=== PATIENT | female | born 1955 | race Two or more races ===

== ENCOUNTER 2017-06-30 16:27 | Observation (INO) | payer OTHER ==
[2017-06-30] MEDS ORDERED: ONDANSETRON 4 MG TAB.RAPDIS PO ONE (17:06)
[2017-06-30] MEDS ORDERED: HYDROCODONE/ACETAMINOPHEN 5-325 MG TABLET PO ONE (17:06)
--- NOTE | 2017-06-30 17:08 | ER Document Report ---
ED Medical Screen (RME) - General Chief Complaint: Abdominal Pain Stated Complaint: RIB PAIN Time Seen by Provider: 06/30/17 17:04 Notes: 7-year-old female patient reports onset last night right upper quadrant abdominal pain with some nausea. It was initially little twinges, now it is consistent and much worse. She did eat hot dogs before this started. She does still have a gallbladder. She has never had this before. I have greeted and performed a rapid initial assessment of this patient. A comprehensive ED assessment and evaluation of the patient, analysis of test results and completion of the medical decision making process will be conducted by additional ED providers. TRAVEL OUTSIDE OF THE [place] IN LAST 30 DAYS: No - Related Data Allergies/Adverse Reactions: shellfish derived Allergy (Verified 06/30/17 16:31) Past Medical History Renal/ Medical History: Denies: Hx Peritoneal Dialysis Physical Exam - Vital signs Vitals: Temp Pulse Resp BP Pulse Ox 98.4 F 85 14 150/79 H 98 06/30/17 16:31 06/30/17 16:31 06/30/17 16:31 06/30/17 16:31 06/30/17 16:31 Course - Vital Signs Vital signs: Temp Pulse Resp BP Pulse Ox 98.4 F 85 14 150/79 H 98 06/30/17 16:31 06/30/17 16:31 06/30/17 16:31 06/30/17 16:31 06/30/17 16:31
--- NOTE | 2017-06-30 17:59 | ER Document Report ---
ED GI/ - General Chief Complaint: Abdominal Pain Stated Complaint: RIB PAIN Time Seen by Provider: 06/30/17 17:04 Notes: The patient is a 61-year-old female who presents with right upper quadrant pain that started after she ate a hot dog. She has never had this before and says that the pain is now constant. She is also having nausea, but denies vomiting, fevers, diarrhea, constipation, urinary symptoms or back pain. TRAVEL OUTSIDE OF THE [place] IN LAST 30 DAYS: No - Related Data Allergies/Adverse Reactions: shellfish derived Allergy (Verified 06/30/17 16:31) Past Medical History - General Information source: Patient - Social History Smoking Status: Unknown if Ever Smoked Family History: Reviewed & Not Pertinent Patient has suicidal ideation: No Patient has homicidal ideation: No Renal/ Medical History: Denies: Hx Peritoneal Dialysis Review of Systems - Review of Systems Notes: REVIEW OF SYSTEMS: CONSTITUTIONAL: -fevers, -chills EENT: -eye pain, -difficulty swallowing, -nasal congestion CARDIOVASCULAR:-chest pain, -syncope. RESPIRATORY: -cough, -SOB GASTROINTESTINAL: +abdominal pain, +nausea, -vomiting, -diarrhea GENITOURINARY: -dysuria, -hematuria MUSCULOSKELETAL: -back pain, -neck pain SKIN: -rash or skin lesions. HEMATOLOGIC: -easy bruising or bleeding. LYMPHATIC: -swollen, enlarged glands. NEUROLOGICAL: -altered mental status or loss of consciousness, -headache, - neurologic symptoms PSYCHIATRIC: -anxiety, -depression. ALL OTHER SYSTEMS REVIEWED AND NEGATIVE. Physical Exam - Vital signs Vitals: Temp Pulse Resp BP Pulse Ox 98.4 F 85 14 150/79 H 98 06/30/17 16:31 06/30/17 16:31 06/30/17 16:31 06/30/17 16:31 06/30/17 16:31 - Notes Notes: PHYSICAL EXAMINATION: GENERAL: Well-appearing, well-nourished and in no acute distress. HEAD: Atraumatic, normocephalic. EYES: Pupils equal round and reactive to light, extraocular movements intact, sclera anicteric, conjunctiva are normal. ENT: nares patent, oropharynx clear without exudates. Moist mucous membranes. NECK: Normal range of motion, supple without lymphadenopathy LUNGS: Breath sounds clear to auscultation bilaterally and equal. No wheezes rales or rhonchi. HEART: Regular rate and rhythm without murmurs ABDOMEN: Soft, nontender, normoactive bowel sounds. No guarding, no rebound. No masses appreciated. EXTREMITIES: Normal range of motion, no pitting or edema. No cyanosis. NEUROLOGICAL: Cranial nerves grossly intact. Normal speech, normal gait. Normal sensory and motor exams. PSYCH: Normal mood, normal affect. SKIN: Warm, Dry, normal turgor, no rashes or lesions noted. Course - Re-evaluation Re-evalutation: 06/30/17 21:[address] An about positive Armendariz sign and ultrasound results and he will be down to see patient. 06/30/17 21:[address] An after he saw patient and he will admit patient for a cholecystectomy in the morning. Patient will be kept n.p.o. and IV fluids and pain medicine will be provided. - Vital Signs Vital signs: Temp Pulse Resp BP Pulse Ox 98.4 F 85 14 150/79 H 98 06/30/17 16:31 06/30/17 16:31 06/30/17 16:31 06/30/17 16:31 06/30/17 16:31 - Laboratory Result Diagrams: 06/30/17 19:25 06/30/17 17:58 Laboratory results interpreted by me: 06/30/17 06/30/17 06/30/17 17:53 17:58 19:25 WBC 15.0 H Seg Neutrophils % 91.7 H Lymphocytes % 5.6 L Monocytes % 2.7 L Absolute Neutrophils 13.7 H Glucose 171 H Urine Protein 30 H Urine Glucose (UA) 50 H Urine Ketones TRACE H - Diagnostic Test Radiology reviewed: Image reviewed, Reports reviewed Radiology results interpreted by me: US RUQ: Gallbladder sludge. Discharge - Discharge Clinical Impression: Right upper quadrant abdominal pain, Gallbladder sludge Condition: Stable Disposition: ADMITTED INPATIENT Admitting Provider: Surgicalist Leonor An Referrals: SHELBY MENDOZA PA-C [Primary Care Provider] - Follow up as needed
[2017-06-30 18:31] LABS: ALANINE AMINOTRANSFERASE 32 U/L (9-52); ALBUMIN 4.8 g/dL (3.5-5.0); ALKALINE PHOSPHATASE 78 U/L (38-126); ANION GAP 12 (5-19); ASPARTATE AMINO TRANSFERASE 21 U/L (14-36); BILIRUBIN,DIRECT 0.3 mg/dL (0.0-0.4); BILIRUBIN,TOTAL 0.6 mg/dL (0.2-1.3); BLOOD UREA NITROGEN 16 mg/dL (7-20); CALCIUM 9.9 mg/dL (8.4-10.2); CARBON DIOXIDE 24 mmol/L (22-30); CHLORIDE 102 mmol/L (98-107); CREATININE RESULT 0.54 mg/dL (0.52-1.25); GLUCOSE 171 mg/dL (75-110); LIPASE 60.5 U/L (23-300); POTASSIUM 4.1 mmol/L (3.6-5.0); SODIUM 137.5 mmol/L (137-145); TOTAL PROTEIN 7.8 g/dL (6.3-8.2)
[2017-06-30 18:35] LABS: APPEARANCE,URINE CLEAR; BILIRUBIN,URINE NEGATIVE (NEGATIVE); GLUCOSE, URINE 50 mg/dL (NEGATIVE); KETONES,URINE TRACE mg/dL (NEGATIVE); LEUKOCYTE ESTERASE,URINE NEGATIVE (NEGATIVE); NITRITE,URINE NEGATIVE (NEGATIVE); PROTEIN,URINE 30 mg/dL (NEGATIVE); UROBILINOGEN,URINE NEGATIVE mg/dL (<2.0)
[2017-06-30] MEDS ORDERED: OXYCODONE-ACETAMINOPHEN 5-325 MG TABLET PO ONE (19:29)
[2017-06-30 19:35] LABS: ABSOLUTE LYMPHOCYTES (AUTO) 0.8 10^3/uL (0.5-4.7); ABSOLUTE MONOCYTES (AUTO) 0.4 10^3/uL (0.1-1.4); ABSOLUTE NEUT (AUTO) 13.7 10^3/uL (1.7-8.2); HEMATOCRIT 44.9 % (36.0-47.0); HEMOGLOBIN 15.5 g/dL (12.0-15.5); HGB HCT DIFFERENCE 1.6; LYMPHOCYTES % (AUTO) 5.6 % (13-45); MEAN CORPUSCULAR HEMOGLOBIN 30.4 pg (27.0-33.4); MEAN CORPUSCULAR HGB CONC 34.5 g/dL (32.0-36.0); MEAN CORPUSCULAR VOLUME 88 fl (80-97); MONOCYTES % (AUTO) 2.7 % (3-13); RED BLOOD COUNT 5.08 10^6/uL (3.72-5.28); SEGMENTED NEUTROPHILS % (AUTO) 91.7 % (42-78)
--- NOTE | 2017-06-30 20:51 | RADIOLOGY REPORT (SQ) ---
EXAM DESCRIPTION: U/S ABDOMEN LIMITED W/O DOP COMPLETED DATE/TIME: 06/30/2017 8:26 pm REASON FOR STUDY: Right upper quadrant abdominal pain COMPARISON: None. TECHNIQUE: Dynamic and static grayscale images acquired of the right upper quadrant and recorded on PACS. Additional selected color Doppler and spectral images recorded. LIMITATIONS: Study limited due to habitus as well as acoustical interference from fat or from air in the bowel. FINDINGS: PANCREAS: Not visualized. LIVER: No masses. Echotexture normal. LIVER VASCULATURE: Normal directional flow of the main portal vein and hepatic veins. GALLBLADDER: Sludge appears to be present. Mild distention. No discrete shadowing stones or wall th ickening or pericholecystic fluid. ULTRASOUND-DETECTED HAWKINS'S SIGN: Negative. INTRAHEPATIC DUCTS AND COMMON DUCT: CBD and intrahepatic ducts normal caliber. No filling defects. INFERIOR VENA CAVA: Not seen. AORTA: Not seen. RIGHT KIDNEY: Normal size. Normal echogenicity. No solid or suspicious masses. No hydronephrosis. No calcifications. PERITONEAL CAVITY AND RIGHT PLEURAL SPACE: No ascites or effusions. OTHER: No other significant finding. IMPRESSION: 1. Gallbladder distention and sludge. No acute gallbladder disease. Limited study [facility]. TECHNICAL DOCUMENTATION: JOB ID: [id number] [employer]- All Rights Reserved
[2017-06-30] MEDS ORDERED: NORMAL SALINE 1000 ML 1,000 ML IV ONE (22:26)
[2017-06-30] MEDS ORDERED: HYDROMORPHONE HCL INJ/PF 2 MG/ML AMPULE IV PRN ×2 (22:26→22:53)
[2017-06-30] MEDS ORDERED: DEXTROSE 40% GEL 15 GM TUBE PO PRN ×2 (22:43)
[2017-06-30] MEDS ORDERED: NORMAL SALINE 1000 ML 1,000 ML IV PRN (22:43)
[2017-06-30] MEDS ORDERED: DEXTROSE 50%-WATER 25 GM/50 ML DISP.SYRIN IV PRN ×2 (22:43)
[2017-06-30] MEDS ORDERED: GLUCAGON,HUMAN RECOMB 1 MG INJ SUBCUT PRN (22:43)
[2017-06-30] MEDS ORDERED: ONDANSETRON HCL INJ/PF 4 MG/2 ML SDV IV PRN (22:55)
[2017-06-30] MEDS ORDERED: PIPERACILLIN/TAZOBACTAM 3.375 GM VIAL IV SCH (23:00)
[2017-06-30] MEDS ORDERED: NICOTINE 21 MG/24 HR PATCH.TD24 TD SCH (23:00)
--- NOTE | 2017-06-30 23:08 | PDOC H&P ---
History of Present Illness Admission Date/PCP: 06/30/17 21:51 SHELBY MENDOZA PA-C Patient complains of: Right upper quadrant pains with nausea History of Present Illness: STEPHANE GONZALES is a 61 year old female Past Medical History Cardiac Medical History: Reports: Hyperlipidema, Hypertension Endocrine Medical History: Reports: Hypothyroidism Past Surgical History Past Surgical History: Reports: Section Social History Smoking Status: Current Every Day Smoker Cigarettes Packs Per Day: 1 Frequency of Alcohol Use: None Hx Recreational Drug Use: No - Advance Directive Resuscitation Status: Full Code Family History Parental Family History Reviewed: Yes - His diabetes mellitus had cholecystectomy Children Family History Reviewed: No Sibling(s) Family History Reviewed.: Yes - 2 other sisters had their gallbladder out Medication/Allergy Home Medications: Amlodipine Besylate [Amlodipine Besylate] 5 mg PO DAILY 06/30/17 Amoxicillin/Potassium Clav [Amox-Clav 875-125 mg Tablet] 1 tab PO Q12H 06/30/17 Atorvastatin Calcium [Lipitor 20 mg Tablet] 20 mg PO QHS 06/30/17 Hydrochlorothiazide [Hydrochlorothiazide] 25 mg PO DAILY 06/30/17 Levothyroxine Sodium 100 mcg PO DAILY 06/30/17 Lisinopril [Zestril] 30 mg PO DAILY 06/30/17 Allergies/Adverse Reactions: shellfish derived Allergy (Verified 06/30/17 16:31) Review of Systems Constitutional: PRESENT: other - Denies any fever or chills Eyes: PRESENT: other - No visual problem Ears: PRESENT: other - Seen by her family physician for ear and sinus infection 3 days ago and was given Augmentin Nose, Mouth, and Throat: PRESENT: other - Sinusitis Cardiovascular: PRESENT: other - Chest pains Respiratory: PRESENT: other - No shortness of breath Gastrointestinal: PRESENT: as per HPI, abdominal pain, nausea Genitourinary: PRESENT: other - No dysuria Musculoskeletal: PRESENT: other - No joint swelling Integumentary: PRESENT: other - Skin rash Neurological: PRESENT: other - No seizures Psychiatric: PRESENT: other - No depression Endocrine: PRESENT: other - No polyuria no polydipsia Hematologic/Lymphatic: PRESENT: other - No easy bruisability and no lymphadenopathy Physical Exam Vital Signs: Temp Pulse Resp BP Pulse Ox 98.4 F 85 14 150/79 H 98 06/30/17 16:31 06/30/17 16:31 11/12/17 16:31 06/30/17 16:31 06/30/17 16:31 General appearance: PRESENT: mild distress Head exam: PRESENT: atraumatic, normocephalic Eye exam: PRESENT: conjunctiva pink Mouth exam: PRESENT: moist, tongue midline Neck exam: PRESENT: full ROM Respiratory exam: PRESENT: clear to auscultation rachel Cardiovascular exam: PRESENT: RRR Pulses: PRESENT: normal radial pulses Vascular exam: PRESENT: normal capillary refill GI/Abdominal exam: PRESENT: soft, tenderness - Rest of the right upper quadrant Rectal exam: PRESENT: deferred Extremities exam: PRESENT: full ROM Musculoskeletal exam: PRESENT: full ROM Neurological exam: PRESENT: alert, oriented to person, oriented to place, oriented to time, oriented to situation Psychiatric exam: PRESENT: appropriate affect Skin exam: PRESENT: dry, normal color, warm Results Impressions: Abdomen Ultrasound 06/30/17 17:07 IMPRESSION: 1. Gallbladder distention and sludge. No acute gallbladder disease. Limited study otherwise. Assessment & Plan - Time Time Spent: 30 to 50 Minutes - Inpatient Certification Based on my medical assessment, after consideration of the patient's comorbidities, presenting symptoms, or acuity I expect that the services needed warrant INPATIENT care.: No I certify that my determination is in accordance with my understanding of Medicare's requirements for reasonable and necessary INPATIENT services [42 CFR 412.3e].: Yes Medical Necessity: Need For IV Fluids, Need for Pain Control, Need for IV Antibiotics, Need for Surgery - Plan Summary Plan Summary: Keep n.p.o. from midnight 2. Start IV antibiotics 3. Start IV fluids 4. Parenteral pain medication with Dilaudid 5. For laparoscopic cholecystectomy in the morning C/O Dr. Kennedy
[2017-07-01] MEDS ORDERED: PIPERACILLIN/TAZOBACTAM 3.375 GM VIAL IV ONE (01:00)
[2017-07-01 07:35] LABS: ABSOLUTE LYMPHOCYTES (AUTO) 1.7 10^3/uL (0.5-4.7); ABSOLUTE MONOCYTES (AUTO) 0.7 10^3/uL (0.1-1.4); ABSOLUTE NEUT (AUTO) 10.7 10^3/uL (1.7-8.2); BASOPHILS % (AUTO) 0.1 % (0-2); EOSINOPHILS % (AUTO) 0.2 % (0-6); HEMATOCRIT 46.5 % (36.0-47.0); HEMOGLOBIN 16.1 g/dL (12.0-15.5); HGB HCT DIFFERENCE 1.8; LYMPHOCYTES % (AUTO) 13.2 % (13-45); MEAN CORPUSCULAR HEMOGLOBIN 30.6 pg (27.0-33.4); MEAN CORPUSCULAR HGB CONC 34.6 g/dL (32.0-36.0); MEAN CORPUSCULAR VOLUME 88 fl (80-97); MONOCYTES % (AUTO) 5.3 % (3-13); RED BLOOD COUNT 5.27 10^6/uL (3.72-5.28); SEGMENTED NEUTROPHILS % (AUTO) 81.2 % (42-78); WHITE BLOOD COUNT 13.2 10^3/uL (4.0-10.5)
[2017-07-01 07:38] LABS: ALANINE AMINOTRANSFERASE 395 U/L (9-52); ALBUMIN 4.8 g/dL (3.5-5.0); ALKALINE PHOSPHATASE 143 U/L (38-126); ANION GAP 14 (5-19); ASPARTATE AMINO TRANSFERASE 416 U/L (14-36); BILIRUBIN,DIRECT 0.8 mg/dL (0.0-0.4); BILIRUBIN,TOTAL 1.6 mg/dL (0.2-1.3); BLOOD UREA NITROGEN 13 mg/dL (7-20); CALCIUM 9.5 mg/dL (8.4-10.2); CARBON DIOXIDE 27 mmol/L (22-30); CHLORIDE 99 mmol/L (98-107); CREATININE RESULT 0.65 mg/dL (0.52-1.25); GLUCOSE 146 mg/dL (75-110); LIPASE 137.6 U/L (23-300); POTASSIUM 3.7 mmol/L (3.6-5.0); SODIUM 139.5 mmol/L (137-145); TOTAL PROTEIN 8.2 g/dL (6.3-8.2)
[2017-07-01] MEDS ORDERED: INFLUENZA ADLT QUAD (36MOS+) 2017-18 VAC 0.5 ML SYR IM PRN (08:48)
--- NOTE | 2017-07-01 09:11 | PDOC PROGRESS REPORT ---
Subjective Progress Note for:: 07/01/17 Subjective:: The patient has been kept n.p.o. after midnight, on IV fluids and voiding. Having moderate pain. Physical Exam Vital Signs: Temp Pulse Resp BP Pulse Ox 99.3 F 72 20 123/66 90 L 07/01/17 08:53 07/01/17 08:53 07/01/17 08:53 07/01/17 08:53 07/01/17 08:53 Intake & Output 06/30/17 07/01/17 07/02/17 06:59 06:59 06:59 Intake Total 0 Balance 0 Weight 78.8 kg General appearance: PRESENT: no acute distress GI/Abdominal exam: PRESENT: other - Moderate tenderness to right upper quadrant palpation Results Laboratory Results: 07/01/17 05:48 07/01/17 05:48 07/01/17 07/01/17 05:48 05:48 WBC 13.2 H RBC 5.27 Hgb 16.1 H Hct 46.5 MCV 88 MCH 30.6 MCHC 34.6 RDW 14.0 Plt Count 150 Seg Neutrophils % 81.2 H Lymphocytes % 13.2 Monocytes % 5.3 Eosinophils % 0.2 Basophils % 0.1 Absolute Neutrophils 10.7 H Absolute Lymphocytes 1.7 Absolute Monocytes 0.7 Absolute Eosinophils 0.0 Absolute Basophils 0.0 Sodium 139.5 Potassium 3.7 Chloride 99 Carbon Dioxide 27 Anion Gap 14 BUN 13 Creatinine 0.65 Est GFR ( Amer) > 60 Est GFR (Non-Af Amer) > 60 Glucose 146 H Calcium 9.5 Total Bilirubin 1.6 H AST 416 H ALT 395 H Alkaline Phosphatase 143 H Total Protein 8.2 Albumin 4.8 Lipase 137.6 Impressions: Abdomen Ultrasound 06/30/17 17:07 IMPRESSION: 1. Gallbladder distention and sludge. No acute gallbladder disease. Limited study otherwise. Assessment & Plan - Diagnosis (1) Acute cholecystitis Is this a current diagnosis for this admission?: Yes Plan: Plan: 1. We have offered the patient laparoscopic, possible open cholecystectomy by Dr. Kennedy, [facility], general anesthesia, 1 hour, possible drain placement Risk benefits and alternatives were discussed with the patient including bleeding, infection, bile duct injury bile leak need for additional surgery etc. She expresses her understanding and agrees to proceed.
[2017-07-01] MEDS ORDERED: BUPIVACAINE HCL 0.25 % INJ/PF (2.5 MG/1 ML) 30 ML VIAL ONE (09:22)
[2017-07-01] MEDS ORDERED: FENTANYL CITRATE INJ/PF 250 MCG/5 ML AMPULE ONE (09:24)
[2017-07-01] MEDS ORDERED: MIDAZOLAM 2 MG/2 ML INJ ONE (09:25)
[2017-07-01] MEDS ORDERED: ONDANSETRON HCL INJ/PF 4 MG/2 ML SDV ONE (09:25)
[2017-07-01] MEDS ORDERED: ACETAMINOPHEN 0 ML IV ONE (09:25)
[2017-07-01] MEDS ORDERED: PROPOFOL INJ 200 MG/20 ML VIAL IV ONE (09:25)
[2017-07-01] MEDS ORDERED: PIPERACILLIN SODIUM/TAZOBACTAM 3.375 GM in NORMAL SALINE 100 ML IV SCH (10:00)
[2017-07-01] MEDS ORDERED: PIPERACILLIN/TAZOBACTAM 3.375 GM VIAL IV SCH (10:00)
[2017-07-01] MEDS ORDERED: FENTANYL CITRATE INJ/PF 100 MCG/2 ML AMPUL IV PRN ×3 (10:49)
[2017-07-01] MEDS ORDERED: PROMETHAZINE HCL INJ 25 MG/1 ML VIAL IV PRN (10:49)
[2017-07-01] MEDS ORDERED: DIPHENHYDRAMINE HCL 50 MG/ML VIAL IV PRN (10:49)
[2017-07-01] MEDS ORDERED: MORPHINE SULFATE 10 MG/ML INJ IV PRN (11:49)
[2017-07-01] MEDS ORDERED: ONDANSETRON HCL INJ/PF 4 MG/2 ML SDV IV PRN (11:49)
[2017-07-01] MEDS ORDERED: KETOROLAC TROMETHAMINE 10 MG TABLET PO PRN (11:49)
--- NOTE | 2017-07-01 11:58 | Operative Report ---
Operative Report DATE OF SURGERY: 07/01/17 PREOPERATIVE DIAGNOSIS: Acute cholecystitis with cholelithiasis POSTOPERATIVE DIAGNOSIS: Same with pregangrenous changes at the fundus OPERATION: Laparoscopic cholecystectomy, extremely difficult modifier SURGEON: PARRIS STONE ANESTHESIA: GA TISSUE REMOVED OR ALTERED: Gallbladder in fragments COMPLICATIONS: None ESTIMATED BLOOD LOSS: 75 cc INTRAOPERATIVE FINDINGS: See below PROCEDURE: After obtaining informed consent, the patient was taken to the operating room. General Anesthesia was induced; the arms were extended, and the abdomen was exposed, and prepped and draped in a sterile fashion. Instrumentation was set up for laparoscopic cholecystectomy. Surgical plan and surgical timeout were conducted. A vertical incision was made above the umbilicus, and a verres needle was inserted uneventfully into the peritoneal cavity. Pneumoperitoneum was established. The verres needle was removed and a 5 mm trocar was inserted and a 5 mm flexible laparoscope was inserted. Visualization of the peritoneal cavity confirmed safe uneventful entry. Under direct visualization 3 additional 5 mm ports were established, one in the subxiphoid position and second in the subcostal position. Intra-abdominal findings are significant for a massively distended, enlarged gallbladder with the fundus pre-gangrenous in appearance. We aspirated approximately 75 cc of dark bile from the distal end of the gallbladder. There were dense adhesions between the gallbladder and the gastroduodenal fatty tissue. All of these adhesions were taken down between a combination of sharp, electrocautery and gentle traction dissection. Now we are able to grasp the gallbladder from the fundus and partially at the infundibulum although this was difficult because of a large stone lodged in the infundibulum. We began dissecting out the tapering portion of the infundibulum but did not get down to the cystic duct itself because of the dense adhesions. We now switched her graspers around and used a top-down approach. The gallbladder was very enlarged, and because of the dense adhesions, increased level of difficulty, and the need for suture energy device, we methodically remove the gallbladder from the liver bed again taking extra time for optimal visualization, and staying in plane. Approximately minutes into this dissection , I decided to amputate the gallbladder and its mid point and this was accomplished using the LigaSure device. We now had the more proximal half of the gallbladder which could be manipulated more easily with graspers. Again the infundibulum was ended with a very large stone. Nonetheless working from the top and from the bottom we are able to eventually narrow the point of fixation of the remaining portion of the gallbladder that is the proximal and with the gallbladder now tapering down to the cystic artery and cystic duct which were localized to a single pedicle. Photos were taken. At this point the operation we had divided name structures and there are no clips Rivera in the patient. We brought onto the field a 0 PDS Endoloop and secured that onto the cystic duct, then amputated the cystic duct distally. Some bile emanated from the cystic duct stump. Thereafter no further bile was released. An Endobag was placed in the peritoneal cavity, both gallbladder fragments were placed into the bag and the specimen brought out of the patient to the supraumbilical port site after opening up the fascial defect. We returned the peritoneal cavity checked for bleeding and bile leak and there was none. There was a minimal amount of leakage from the lateral raw liver surface edge and this was managed with electrocautery and 3 small strips of Surgicel; we did not believe a drain was indicated. At this point the operation was felt all was complete.; All ports removed under direct visualization pneumoperitoneum evacuated, and 5 mm port wounds closed; a supraumbilical incision was closed with 2-0 Vicryl [id number] sutures and the skin incisions closed with 3-0 Vicryl suture, benzoin and Steri-Strips. The patient was extubated, and taken to the recovery room in stable condition. Justification for extremely difficult modifier: The operation took over an hour due to dense inflammatory adhesions requiring more time or effort more instrumentation utilization including the LigaSure device.
[2017-07-01] MEDS ORDERED: VECURONIUM BROMIDE INJ 10 MG VIAL IV ONE (13:22)
[2017-07-01] MEDS ORDERED: GLYCOPYRROLATE INJ 0.4 MG/2 ML VIAL ONE (13:22)
[2017-07-01] MEDS ORDERED: SUCCINYLCHOLINE CHLORIDE INJ 200 MG/10 ML VIAL ONE (13:22)
[2017-07-01] MEDS ORDERED: LIDOCAINE 2% INJ-PF (20 MG/ML) 2 ML AMPUL ONE (13:22)
[2017-07-01] MEDS ORDERED: DEXAMETHASONE SOD PHOSPHATE INJ 4 MG/1 ML VIAL ONE (13:22)
[2017-07-01] MEDS ORDERED: NEOSTIGMINE METHYLSULFATE 10 MG/10 ML VIAL ONE (13:22)
[2017-07-01 15:34] VITALS: BP 113/56
--- NOTE | 2017-07-01 17:53 | DISCHARGE SUMMARY E ---
Discharge Summary NAME: STEPHANE GONZALES : 1955 AGE: 61Y ADMITTED: 06/30/2017 DISCHARGED: 07/01/2017 REASON FOR ADMISSION: Acute abdominal pain. HISTORY OF PRESENT ILLNESS: The patient is a 61-year-old white female who presents to the emergency department complaining of abdominal pain and nausea. She was evaluated and found to have a leukocytosis, and CT scan findings consistent with acute cholecystitis with cholelithiasis. PAST MEDICAL AND SURGICAL HISTORY: Can be found in the history and physical document. SUMMARY OF HOSPITALIZATION: The patient was kept n.p.o. on IV fluids and intravenous antibiotics. The following morning, the patient was taken to the operating room where she underwent laparoscopic cholecystectomy by Dr. Kennedy. She was found to have an acutely inflamed gallbladder, enlarged with a gangrenous fundus. She tolerated the resection well. By later that late afternoon, she was felt ready for discharge home into the care of her family. FINAL DIAGNOSIS: Acute cholecystitis with cholelithiasis status post laparoscopic cholecystectomy by Dr. Kennedy. DISPOSITION: The patient can be discharged home into the care of family with a coughing pillow and an abdominal binder. She was encouraged to stop smoking. She will take Motrin and Tylenol p.r.n. pain. She will follow up with Dr. Kennedy at [facility] in approximately 1 week. DICTATING PHYSICIAN: PARRIS KENNEDY M.D. [id number] PHY#: [id number] ID: [id number] JOB#: [id number] ACCT: [id number] cc:Komal SIMPSON M.D. MARSHALL B. FRINK, M.D. >
[2017-07-01] MEDS ORDERED: DOCUSATE SODIUM 100 MG CAPSULE PO SCH (18:00)
== END 2017-07-01 16:02 | disposition home or self-care (01) ==
LOC: ER 16:27 → EH 21:51 → UNDOADMOB 21:51 → INTOOBSV 21:51 → EH 22:43 → 4W 23:39
PROVIDERS: ADMIT Surgery; ATTEND Surgery
PROC: 0DN64ZZ Release Stomach, Percutaneous Endoscopic Approach (ICD-10-PCS; 2017-07-01)
PROC: 0DN94ZZ Release Duodenum, Percutaneous Endoscopic Approach (ICD-10-PCS; 2017-07-01)
PROC: 0FT44ZZ Resection of Gallbladder, Percutaneous Endoscopic Approach (ICD-10-PCS; principal; 2017-07-01 10:00)
DX: C23 Malignant neoplasm of gallbladder (principal); K80.00 Calculus of gallbladder with acute cholecystitis without obstruction; K66.0 Peritoneal adhesions (postprocedural) (postinfection); F17.210 Nicotine dependence, cigarettes, uncomplicated; I10 Essential (primary) hypertension; E78.5 Hyperlipidemia, unspecified; E03.9 Hypothyroidism, unspecified; J32.9 Chronic sinusitis, unspecified; R07.9 Chest pain, unspecified; R21 Rash and other nonspecific skin eruption; Z83.79 Family history of other diseases of the digestive system; Z79.899 Other long term (current) drug therapy
CPT/HCPCS: 99285; 36415 ×2; 83690 ×2; 85025 ×2; 80053 ×2; 81001; 88342 ×2; 88341 ×2; 88304 ×2; 76705; 47562; 49329; J2250; J1100; S0119; J3010; J3490 ×2; J1170 ×2; J0330; J2405; J7030; J2704; J2543; 790; J0131

== ENCOUNTER → 2017-07-18 | Outpatient (CLI) | payer OTHER ==
--- NOTE | 2017-07-18 16:01 | RADIOLOGY REPORT (SQ) ---
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 TECHNIQUE: CT scan of the chest performed using helical scanning technique with dynamic intravenous contrast injection. Images reviewed with lung, soft tissue and bone windows. Reconstructed coronal a nd sagittal MPR images reviewed. All images stored on PACS. All CT scanners at this facility use dose modulation, iterative reconstruction, and/or weight based d osing when appropriate to reduce radiation dose to as low as reasonably achievable (ALARA). [facility]: Dose Right [facility]: CareDose [facility]: Dose Right [facility]: Teradose 4D [facility]: [facility] RADIATION DOSE: CT Rad equipment meets quality standard of care and radiation dose reduction techniq ues were employed. CTDIvol: 5.8 - 7.7 mGy. DLP: 1045 mGy-cm.. LIMITATIONS: None. FINDINGS: AXILLAE: No adenopathy. CHEST WALL: No masses. No subcutaneous air. LUNGS: Mild centrilobular emphysematous changes. No masses or infiltrates. No pleural effusion. PLEURA: No effusions. No calcifications. THYROID: No masses or significant asymmetry. HILAR AND MEDIASTINAL STRUCTURES: No identified masses or abnormal nodes. AORTA AND GREAT VESSELS: No aneurysm. No dissection. PULMONARY ARTERIES: No identified pulmonary emboli. Study not optimized for the pulmonary arteries. HEART: No pericardial effusion. HARDWARE AND LIFELINES: None. BONES: No significant finding. OTHER: No other significant finding. IMPRESSION: Pulmonary emphysema. No thoracic metastases. COMPARISON: None. RADIATION DOSE: CT Rad equipment meets quality standard of care and radiation dose reduction techniq ues were employed. CTDIvol: 5.8 - 7.7 mGy. DLP: 1045 mGy-cm.mGy. TECHNIQUE: CT scan of the abdomen and pelvis performed with intravenous and oral contrast using giovani osiel scanning technique with dynamic intravenous contrast injection. Images reviewed with lung, soft tissue and bone windows. Reconstructed coronal and sagittal MPR images reviewed. Delayed images for evaluation of the urinary system also acquired and evaluated. All images stored on PACS. All CT scanners at this facility use dose modulation, iterative reconstruction, and/or weight based d osing when appropriate to reduce radiation dose to as low as reasonably achievable (ALARA). [facility]: Dose Right [facility]: [facility]: Dose Right [facility]: Teradose 4D [facility]: [facility] FINDINGS: LIVER: There are 2 small bubbles of air in the gallbladder fossa. A small hepatic cyst is present. No masses are seen SPLEEN: Normal size. No focal lesions. PANCREAS: No masses. No significant calcifications. No adjacent inflammation or peripancreatic flui d collections. Pancreatic duct not dilated. GALLBLADDER: Surgically absent. ADRENAL GLANDS: No significant masses or asymmetry. RIGHT KIDNEY AND URETER: No solid masses. No significant calcification. No hydronephrosis or hydroure ter. LEFT KIDNEY AND URETER: No solid masses. No significant calcification. No hydronephrosis or hydrouret er. AORTA AND VESSELS: No aneurysm. No dissection. Renal arteries, SMA, celiac without stenosis. RETROPERITONEUM: No retroperitoneal adenopathy, hemorrhage or masses. LARGE AND SMALL BOWEL: No dilatation. No masses. No wall thickening. APPENDIX: Not identified. ABDOMINAL WALL: No hernia or masses. PERITONEAL CAVITY: No free air. No free fluid. No peritoneal implants or masses. PELVIS: No mass or free fluid. Normal bladder. BONES: No significant or acute findings. OTHER: No other significant finding. IMPRESSION: 1. There is no evidence of metastatic disease in the abdomen or pelvis. 2. There are 2 small bubbles of air in the gallbladder fossa, likely residual from surgery. TECHNICAL DOCUMENTATION: JOB ID: [id number] Quality ID # [id number]: Final reports with documentation of one or more dose reduction techniques (e.g., Au tomated exposure control, adjustment of the mA and/or kV according to patient size, use of iterative reconstruction technique) 2010 [employer]- All Rights Reserved
--- NOTE | 2017-07-18 16:01 | RADIOLOGY REPORT (SQ) ---
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 TECHNIQUE: CT scan of the chest performed using helical scanning technique with dynamic intravenous contrast injection. Images reviewed with lung, soft tissue and bone windows. Reconstructed coronal a nd sagittal MPR images reviewed. All images stored on PACS. All CT scanners at this facility use dose modulation, iterative reconstruction, and/or weight based d osing when appropriate to reduce radiation dose to as low as reasonably achievable (ALARA). [facility]: Dose Right [facility]: CareDose [facility]: Dose Right [facility]: Teradose 4D [facility]: Ioxus RADIATION DOSE: CT Rad equipment meets quality standard of care and radiation dose reduction techniq ues were employed. CTDIvol: 5.8 - 7.7 mGy. DLP: 1045 mGy-cm.. LIMITATIONS: None. FINDINGS: AXILLAE: No adenopathy. CHEST WALL: No masses. No subcutaneous air. LUNGS: Mild centrilobular emphysematous changes. No masses or infiltrates. No pleural effusion. PLEURA: No effusions. No calcifications. THYROID: No masses or significant asymmetry. HILAR AND MEDIASTINAL STRUCTURES: No identified masses or abnormal nodes. AORTA AND GREAT VESSELS: No aneurysm. No dissection. PULMONARY ARTERIES: No identified pulmonary emboli. Study not optimized for the pulmonary arteries. HEART: No pericardial effusion. HARDWARE AND LIFELINES: None. BONES: No significant finding. OTHER: No other significant finding. IMPRESSION: Pulmonary emphysema. No thoracic metastases. COMPARISON: None. RADIATION DOSE: CT Rad equipment meets quality standard of care and radiation dose reduction techniq ues were employed. CTDIvol: 5.8 - 7.7 mGy. DLP: 1045 mGy-cm.mGy. TECHNIQUE: CT scan of the abdomen and pelvis performed with intravenous and oral contrast using giovani osiel scanning technique with dynamic intravenous contrast injection. Images reviewed with lung, soft tissue and bone windows. Reconstructed coronal and sagittal MPR images reviewed. Delayed images for evaluation of the urinary system also acquired and evaluated. All images stored on PACS. All CT scanners at this facility use dose modulation, iterative reconstruction, and/or weight based d osing when appropriate to reduce radiation dose to as low as reasonably achievable (ALARA). [facility]: Dose Right [facility]: SureCare [facility]: Dose Right [facility]: Teradose 4D [facility]: Ioxus FINDINGS: LIVER: There are 2 small bubbles of air in the gallbladder fossa. A small hepatic cyst is present. No masses are seen SPLEEN: Normal size. No focal lesions. PANCREAS: No masses. No significant calcifications. No adjacent inflammation or peripancreatic flui d collections. Pancreatic duct not dilated. GALLBLADDER: Surgically absent. ADRENAL GLANDS: No significant masses or asymmetry. RIGHT KIDNEY AND URETER: No solid masses. No significant calcification. No hydronephrosis or hydroure ter. LEFT KIDNEY AND URETER: No solid masses. No significant calcification. No hydronephrosis or hydrouret er. AORTA AND VESSELS: No aneurysm. No dissection. Renal arteries, SMA, celiac without stenosis. RETROPERITONEUM: No retroperitoneal adenopathy, hemorrhage or masses. LARGE AND SMALL BOWEL: No dilatation. No masses. No wall thickening. APPENDIX: Not identified. ABDOMINAL WALL: No hernia or masses. PERITONEAL CAVITY: No free air. No free fluid. No peritoneal implants or masses. PELVIS: No mass or free fluid. Normal bladder. BONES: No significant or acute findings. OTHER: No other significant finding. IMPRESSION: 1. There is no evidence of metastatic disease in the abdomen or pelvis. 2. There are 2 small bubbles of air in the gallbladder fossa, likely residual from surgery. TECHNICAL DOCUMENTATION: JOB ID: [id number] Quality ID # [id number]: Final reports with documentation of one or more dose reduction techniques (e.g., Au tomated exposure control, adjustment of the mA and/or kV according to patient size, use of iterative reconstruction technique) 2010 [employer]- All Rights Reserved
== END ==
LOC: RAD 13:51
PROVIDERS: ATTEND Internal Medicine Hematology & Oncology
DX: C23 Malignant neoplasm of gallbladder (principal)
CPT/HCPCS: 71260; 74177

== ENCOUNTER 2017-09-11 09:20 | Day surgery (SDC) | payer OTHER ==
[~2017-09-11 09:20] MED LIST: ACETAMINOPHEN 325 MG TABLET PO PRN; CEFAZOLIN 1 GM/D5W RTU 1 GM/50 ML RTUPB IV PRN
[2017-09-11] MEDS ORDERED: LIDOCAINE 1%/EPINEPHRINE INJ 20 ML VIAL ONE (09:37)
[2017-09-11] MEDS ORDERED: MIDAZOLAM 2 MG/2 ML INJ ONE ×2 (10:14→10:48)
[2017-09-11] MEDS ORDERED: ALBUTEROL SULFATE 0.083% NEB 2.5 MG/3 ML AMPUL NEB ONE (10:14)
[2017-09-11 10:24] LABS: HEMATOCRIT 43.5 % (36.0-47.0); HEMOGLOBIN 14.9 g/dL (12.0-15.5); MEAN CORPUSCULAR HEMOGLOBIN 29.9 pg (27.0-33.4); MEAN CORPUSCULAR HGB CONC 34.2 g/dL (32.0-36.0); MEAN CORPUSCULAR VOLUME 87 fl (80-97); PLATELET COUNT 125 10^3/uL (150-450); RED BLOOD COUNT 4.98 10^6/uL (3.72-5.28); RED CELL DISTRIBUTION WIDTH 14.2 % (11.5-14.0); WHITE BLOOD COUNT 7.6 10^3/uL (4.0-10.5)
[2017-09-11 10:36] LABS: ANION GAP 10 (5-19); BLOOD UREA NITROGEN 19 mg/dL (7-20); CARBON DIOXIDE 27 mmol/L (22-30); CHLORIDE 105 mmol/L (98-107); GLUCOSE 138 mg/dL (75-110); POTASSIUM 4.5 mmol/L (3.6-5.0); SODIUM 141.7 mmol/L (137-145)
[2017-09-11] MEDS ORDERED: LIDOCAINE 2% INJ-PF (20 MG/ML) 10 ML AMPUL ONE (10:47)
[2017-09-11] MEDS ORDERED: FENTANYL CITRATE INJ/PF 100 MCG/2 ML AMPUL ONE (10:47)
[2017-09-11] MEDS ORDERED: ONDANSETRON HCL INJ/PF 4 MG/2 ML SDV ONE (10:48)
[2017-09-11] MEDS ORDERED: PROPOFOL INJ 200 MG/20 ML VIAL IV ONE ×2 (10:48→11:51)
[2017-09-11] MEDS ORDERED: FENTANYL CITRATE INJ/PF 100 MCG/2 ML AMPUL IV PRN ×3 (12:03)
[2017-09-11] MEDS ORDERED: PROMETHAZINE HCL INJ 25 MG/1 ML VIAL IV PRN (12:03)
[2017-09-11] MEDS ORDERED: DIPHENHYDRAMINE HCL 50 MG/ML VIAL IV PRN (12:03)
--- NOTE | 2017-09-11 12:08 | PDOC DISCHARGE SUMMARY ---
Discharge Summary (SDC) - Discharge Final Diagnosis: Locally advanced gallbladder carcinoma Date of Surgery: 09/11/17 Discharge Date: 09/11/17 Condition: Good Treatment or Instructions: May resume preop medications diet activity; may shower in 48 hours; follow-up with [place] [facility] in 2 weeks please Referrals: SHELBY MENDOZA PA-C [Primary Care Provider] - Discharge Diet: As Tolerated Discharge Activity: Activity As Tolerated Home Care Assistance: None Needed Report the Following to Your Physician Immediately: Shortness of Breath, Increase in Pain, Fever over 101 Degrees
--- NOTE | 2017-09-11 12:29 | OPERATIVE REPORT E ---
Operative Report NAME: [facility] : 1955 AGE: 61Y DATE OF SURGERY: 09/11/2017 ROOM: PREOPERATIVE DIAGNOSIS: Metastatic gallbladder carcinoma. POSTOPERATIVE DIAGNOSIS: Metastatic gallbladder carcinoma. OPERATION: 1. Focused ultrasound of the right neck. 2. Ultrasound directed insertion of single lumen Qcnu-H-[id number] into the right subclavian position. 3. Intraoperative fluoroscopy with interpretation. SURGEON: PARRIS STONE M.D. ANESTHESIA: LMAC. LEATHER FLESHER: GULSHAN Waters COMPLICATIONS: None. ESTIMATED BLOOD LOSS: Scant. DRAINS: None. TISSUE REMOVED OR ALTERED: None. SUMMARY OF PROCEDURE: Patient was taken to the main operating room where LMAC anesthesia was induced. The neck was rotated to the left side and extended. The right neck was prepped and draped in a sterile fashion. Surgical plan and surgical timeout were conducted. Using ultrasound as a guide real time, skin was anesthetized with 1% plain lidocaine, and the right internal jugular vein was cannulated with a microneedle and wire after making a small crystal in the skin. Fluoroscopically the wire was in the superior vena cava. A suitable site for placement of the port was chosen in the right subclavian position. The skin was anesthetized with 1% plain lidocaine, 3 cm incision was made with a knife, subcutaneous tissue cauterized, and a pocket developed large enough to accommodate a single chamber port. The catheter, 9 Hungarian, was tunneled between the 2 incisions, attached to the port with the plastic ring, and the catheter was trimmed at approximately 24 cm full length. The microneedle was switched over to a conventional 0.030 guidewire under fluoroscopic guidance. We now placed the dilator introducer sheath over the wire, dilator and wire removed, and the catheter threaded through the strip away sheath. The result was tip of the catheter in the superior vena cava, no kinking of the catheter, and excellent aspiration and flushed through the catheter. Wound was closed with 3-0 Vicryl, Benzoin, and Steri-Strips. The patient tolerated the procedure well, taken to recovery in stable condition. A portable upright chest x-ray is pending at the time of dictation. DICTATING PHYSICIAN: PARRIS STONE M.D. [id number] Y#: [id number] ID: [id number] JOB#: [id number] ACCT: [id number] cc:PARRIS STONE M.D. >
--- NOTE | 2017-09-11 14:05 | RADIOLOGY REPORT (SQ) ---
EXAM DESCRIPTION: CHEST SINGLE VIEW COMPLETED DATE/TIME: 09/11/2017 12:39 pm REASON FOR STUDY: Disposed port placement COMPARISON: CT chest 07/18/2017 EXAM PARAMETERS: NUMBER OF VIEWS: One view. TECHNIQUE: Single frontal radiographic view of the chest acquired. RADIATION DOSE: NA LIMITATIONS: None. FINDINGS: A right jugular permanent central line is present with the tip projected over the expected location of the superior vena cava. Catheter tip has a slight curl or bend, and may be a in the azy gos vein rather than the SVC. Consider fluoroscopic port injection for further evaluation. LUNGS AND PLEURA: Mild left basilar atelectasis. Lungs otherwise free of focal infiltrates. No pleu ral effusion. No pneumothorax. MEDIASTINUM AND HILAR STRUCTURES: No masses. Contour normal. HEART AND VASCULAR STRUCTURES: Heart normal in size. Normal vasculature. BONES: No acute findings. HARDWARE: As above OTHER: No other significant finding. IMPRESSION: Minimal left basilar scarring or atelectasis Right jugular permanent central line present, the tip is either in the superior vena cava or azygos v ein. Consider fluoroscopic port injection for further evaluation TECHNICAL DOCUMENTATION: JOB ID: [id number] [employer]- All Rights Reserved
[2017-09-11 14:18] VITALS: BP 117/69
--- NOTE | 2017-09-11 14:56 | RADIOLOGY REPORT (SQ) ---
EXAM DESCRIPTION: FLUORO/CV PLACEMENT COMPLETED DATE/TIME: 09/11/2017 1:43 pm REASON FOR STUDY: PORTACATH PLCMT RT SIDE ASSISTED WITH FLUORO IN OR C23 MALIGNANT NEOPLASM OF GALL BLADDER FLUOROSCOPY TIME: 0.1 minutes 4 digital C-arm images saved to PACS. TECHNIQUE: Intra-operative images acquired during surgical procedure to evaluate progress. NUMBER OF IMAGES: 4 digital C arm images LIMITATIONS: None. FINDINGS: Intra procedural imaging and fluoro during placement of a right-sided permanent central li ne with the tip in the superior vena cava IMPRESSION: Intra procedural imaging and fluoro COMMENT: Quality ID 145: Final reports for procedures using fluoroscopy that document radiation exp osure indices, or exposure time and number of fluorographic images (if radiation exposure indices are not available) Please consult full operative report of the attending physician for description of the procedure. TECHNICAL DOCUMENTATION: JOB ID: [id number] [employer]- All Rights Reserved COMPARISON: None. CT chest 07/18/2017
--- NOTE | 2017-09-12 11:57 | EKG REPORT ---
SEVERITY:- NORMAL ECG - SINUS RHYTHM : Confirmed by: Shiva Trejo 12-Sep-2017 11:57:00
== END 2017-09-11 14:33 | disposition home or self-care (01) ==
LOC: OROUT 09:20
PROVIDERS: ATTEND Surgery
PROC: 05H533Z Insertion of Infusion Device into Right Subclavian Vein, Percutaneous Approach (ICD-10-PCS; principal; 2017-09-11 11:30)
DX: C23 Malignant neoplasm of gallbladder (principal); E78.00 Pure hypercholesterolemia, unspecified; F17.210 Nicotine dependence, cigarettes, uncomplicated; E07.9 Disorder of thyroid, unspecified; I10 Essential (primary) hypertension
CPT/HCPCS: 36561; 36415; 85027; 80048; 71045; 77001; 93005; 93010; C1752; C1788; J2250; J0690; J3010; J3490 ×2; J2405; J2704; J1642; 532

== ENCOUNTER → 2017-12-31 | Outpatient (CLI) | payer OTHER ==
--- NOTE | 2017-12-31 11:48 | RADIOLOGY REPORT (SQ) ---
EXAM DESCRIPTION: CT ABDOMEN WITH IV ORAL CONT COMPLETED DATE/TIME: 12/31/2017 10:20 am REASON FOR STUDY: GALLBLADDER CANCER C23 MALIGNANT NEOPLASM OF GALLBLADDER COMPARISON: Ultrasound abdomen 06/30/2017 CT abdomen pelvis 07/18/2017 TECHNIQUE: CT scan of the abdomen performed with intravenous and with oral contrast using helical sc anning technique with dynamic intravenous contrast injection. Images reviewed with lung, soft tissue, and bone windows. Reconstructed coronal and sagittal MPR images reviewed. Delayed images for evaluat ion of the urinary system also acquired and evaluated. All images stored on PACS. All CT scanners at this facility use dose modulation, iterative reconstruc tion, and/or weight based dosing when appropriate to reduce radiation dose to as low as reasonably ac hievable (ALARA). [facility]: Dose Right [facility]: CareDose [facility]: Dose Right [facility]: Teradose 4D [facility]: inMotionNow CONTRAST TYPE AND DOSE: 95 mL of IV Isovue 370- low osmolar. RENAL FUNCTION: Creatinine 0.7 RADIATION DOSE: 32 mGy LIMITATIONS: None. FINDINGS: LOWER CHEST: No significant findings. No nodules or infiltrates. LIVER: Bandlike area of decreased liver parenchyma attenuation, along the gallbladder fossa and left lobe liver from radiation therapy. There is blurring of fat planes along the hemal hepatis around th e main portal vein, common bile duct, and 2nd portion of the duodenum. Incidental finding of 1 cm cyst left lobe liver unchanged from 07/18/2017. No biliary ductal dilatation. No liver masses are identified. Normal enhancement of the superior mesenteric vein and portal vein.These changes are bes t shown on axial images 23-30. SPLEEN: Normal size. No focal lesions. PANCREAS: No masses. No significant calcifications. No adjacent inflammation or peripancreatic fluid collections. Pancreatic duct not dilated. GALLBLADDER: Surgically absent ADRENAL GLANDS: No significant masses or asymmetry. RIGHT KIDNEY AND URETER: No solid masses. No significant calcifications. No hydronephrosis or hyd roureter. LEFT KIDNEY AND URETER: No solid masses. No significant calcifications. No hydronephrosis or hydr oureter. AORTA AND VESSELS: No aneurysm. No dissection. Renal arteries, SMA, celiac without stenosis. RETROPERITONEUM: No retroperitoneal adenopathy, hemorrhage or masses. BOWEL AND PERITONEAL CAVITY: No masses or inflammatory changes. No free fluid or peritoneal masses. APPENDIX: Not in the field of view ABDOMINAL WALL: No masses. No hernias. BONES: No significant or acute findings. OTHER: No other significant finding. IMPRESSION: Post cholecystectomy with bandlike low attenuation in the liver at the gallbladder fossa , and stranding in the right upper quadrant fat at the hemal hepatis from prior radiation therapy. N o adenopathy, liver metastatic lesions or right upper quadrant nodules worrisome for recurrent gallbl adder malignancy TECHNICAL DOCUMENTATION: JOB ID: [id number] Quality ID # 436: Final reports with documentation of one or more dose reduction techniques (e.g., Au tomated exposure control, adjustment of the mA and/or kV according to patient size, use of iterative reconstruction technique) 2010 [employer]- All Rights Reserved Reading location - IP/workstation name: [email or web address]
== END ==
LOC: RAD 09:22
PROVIDERS: ATTEND Internal Medicine Hematology & Oncology
DX: C23 Malignant neoplasm of gallbladder (principal)
CPT/HCPCS: 74160; 82565

== ENCOUNTER → 2018-05-13 | Outpatient (CLI) | payer OTHER ==
--- NOTE | 2018-05-13 11:29 | RADIOLOGY REPORT (SQ) ---
EXAM DESCRIPTION: CT ABDOMEN WITH IV ORAL CONT COMPLETED DATE/TIME: 05/13/2018 10:45 am REASON FOR STUDY: MALIGNANT NEOPLASM OF GALLBLADDER C23 MALIGNANT NEOPLASM OF GALLBLADDER COMPARISON: 12/31/2017 TECHNIQUE: CT scan of the abdomen performed with intravenous and with oral contrast using helical sc anning technique with dynamic intravenous contrast injection. Images reviewed with lung, soft tissue, and bone windows. Reconstructed coronal and sagittal MPR images reviewed. Delayed images for evaluat ion of the urinary system also acquired and evaluated. All images stored on PACS. All CT scanners at this facility use dose modulation, iterative reconstruc tion, and/or weight based dosing when appropriate to reduce radiation dose to as low as reasonably ac hievable (ALARA). [facility]: Dose Right [facility]: CareDose [facility]: Dose Right [facility]: Teradose 4D [facility]: [employer] CONTRAST TYPE AND DOSE: contrast/concentration: Isovue 350.00 mg/ml; Total Contrast Delivered: 100.0 ml; Total Saline Delivered: 32.5 ml RENAL FUNCTION: GFR > 60. RADIATION DOSE: CT Rad equipment meets quality standard of care and radiation dose reduction techniq ues were employed. CTDIvol: 13.2 - 14.9 mGy. DLP: 1079 mGy-cm. . LIMITATIONS: None. FINDINGS: LOWER CHEST: Unchanged 5 mm nodule right lower lobe. LIVER: Postsurgical changes. Benign cyst. SPLEEN: Normal size. No focal lesions. PANCREAS: No masses. No significant calcifications. No adjacent inflammation or peripancreatic fluid collections. Pancreatic duct not dilated. GALLBLADDER: Surgically absent. ADRENAL GLANDS: No significant masses or asymmetry. RIGHT KIDNEY AND URETER: No solid masses. No significant calcifications. No hydronephrosis or hyd roureter. LEFT KIDNEY AND URETER: No solid masses. No significant calcifications. No hydronephrosis or hydr oureter. AORTA AND VESSELS: No aneurysm. No dissection. Renal arteries, SMA, celiac without stenosis. RETROPERITONEUM: No retroperitoneal adenopathy, hemorrhage or masses. BOWEL AND PERITONEAL CAVITY: No masses or inflammatory changes. No free fluid or peritoneal masses. APPENDIX: Normal. ABDOMINAL WALL: Unchanged umbilical hernia. BONES: No acute findings. OTHER: No other significant finding. IMPRESSION: 1. Partial hepatic resection. No evidence of local recurrence. No ascites. 2. Stable right lower lobe pulmonary nodule. TECHNICAL DOCUMENTATION: JOB ID: [id number] Quality ID # 436: Final reports with documentation of one or more dose reduction techniques (e.g., Au tomated exposure control, adjustment of the mA and/or kV according to patient size, use of iterative reconstruction technique) 2010 [employer]- All Rights Reserved Reading location - IP/workstation name: [email or web address]
== END ==
LOC: RAD 10:12
PROVIDERS: ATTEND Internal Medicine Hematology & Oncology
DX: C23 Malignant neoplasm of gallbladder (principal)
CPT/HCPCS: 74160

== ENCOUNTER → 2018-10-24 | Outpatient (CLI) | payer OTHER ==
--- NOTE | 2018-10-24 10:04 | RADIOLOGY REPORT (SQ) ---
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 Images reviewed with lung, soft tissue, and bone windows. Reconstructed coronal and sagittal MPR images reviewed. Delayed images for evaluat ion of the urinary system also acquired and evaluated. All images stored on PACS. All CT scanners at this facility use dose modulation, iterative reconstruc tion, and/or weight based dosing when appropriate to reduce radiation dose to as low as reasonably ac hievable (ALARA). [facility]: Dose Right [facility]: CareDose [facility]: Dose Right [facility]: Teradose 4D [facility]: [employer] CONTRAST TYPE AND DOSE: contrast/concentration: Isovue 350.00 mg/ml; Total Contrast Delivered: 100.0 ml; Total Saline Delivered: 72.0 ml RENAL FUNCTION: Creatinine 0.8 RADIATION DOSE: CT Rad equipment meets quality standard of care and radiation dose reduction techniq ues were employed. CTDIvol: 11.2 - 13.0 mGy. DLP: 908 mGy-cm. . LIMITATIONS: None. FINDINGS: LOWER CHEST: Increase in size and number of nodules at both lung bases. At in the right p osterior costophrenic sulcus, a 10 mm nodule is present on axial image 12 (was 4 mm in size 05/13/ 8). At the left posterior costophrenic sulci a 10 mm nodule is present on axial image 60, new compar ed to prior studies LIVER: Partial resection left lobe liver. Stable 1 cm cyst axial image 23 SPLEEN: Normal size. No focal lesions. PANCREAS: No masses. No significant calcifications. No adjacent inflammation or peripancreatic fluid collections. Pancreatic duct not dilated. GALLBLADDER: Surgically absent ADRENAL GLANDS: No significant masses or asymmetry. RIGHT KIDNEY AND URETER: No solid masses. No significant calcifications. No hydronephrosis or hyd roureter. LEFT KIDNEY AND URETER: No solid masses. No significant calcifications. No hydronephrosis or hydr oureter. AORTA AND VESSELS: No aneurysm. No dissection. Renal arteries, SMA, celiac without stenosis. RETROPERITONEUM: Along the portacaval space/celiac region, a 3.2 x 2.5 x 2.5 cm soft tissue nodule is present, encasing the hepatic artery and left gastric artery. This is best shown on axial image 26, coronal image 48, and sagittal image 11, worrisome for tumor recurrence. BOWEL AND PERITONEAL CAVITY: Patient drank oral contrast. No CT evidence of bowel obstruction. No f ree intraperitoneal air or fluid APPENDIX: Not in the field of view ABDOMINAL WALL: Small umbilical hernia BONES: No significant or acute findings. OTHER: No other significant finding. IMPRESSION: Nodule worrisome for tumor recurrence in the upper retroperitoneum along the celiac luz on/portal caval space Increasing size and number of lung metastatic lesions at the lung bases TECHNICAL DOCUMENTATION: JOB ID: [id number] Quality ID # 436: Final reports with documentation of one or more dose reduction techniques (e.g., Au tomated exposure control, adjustment of the mA and/or kV according to patient size, use of iterative reconstruction technique) 2010 [employer]- All Rights Reserved Reading location - IP/workstation name: [email or web address]
== END ==
LOC: RAD 08:07
PROVIDERS: ATTEND Internal Medicine Hematology & Oncology
DX: C23 Malignant neoplasm of gallbladder (principal); C78.02 Secondary malignant neoplasm of left lung; C78.01 Secondary malignant neoplasm of right lung
CPT/HCPCS: 74160; 82565

== ENCOUNTER → 2018-11-16 | Outpatient (CLI) | payer OTHER ==
--- NOTE | 2018-11-17 14:59 | RADIOLOGY REPORT (SQ) ---
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 TECHNIQUE: Blood glucose level was verified. Above dose of FDG was injected intravenously. 2-D seg mented attenuation correction images were obtained from the base of the skull to the midthighs. Nonc ontrast CT images were obtained for attenuation correction and fusion with emission images. CT image s were performed without oral or intravenous contrast and are not sensitive for parenchymal lesions. A series of overlapping emission PET images were obtained. [facility] by the radiologist. Images stored on PACS. LIMITATIONS: None. FINDINGS: HEAD AND NECK: Hypermetabolic tissue is present along the right and left lower pole thyroi d without discrete mass identified by CT. This could represent small thyroid adenomas, metabolically active with SUV in the right lower pole thyroid at 8.4, SUV in the left lower pole thyroid 4.8. There is a 1.3 x 0.8 cm left supraclavicular lymph node with SUV 5.2, best shown on axial image 51. CHEST: Small nodules at both lung bases are present, with metabolic activity less than blood pool, as follows. These are new compared to 09/17/2016, and stable in size compared to 10/24/2018 Right lower lobe 11 mm nodule image 98, SUV 1.5 Right lower lobe 7 mm nodule axial image 105, SUV 1.7 Left lower lobe 12 mm nodule image 103, SUV 1.2 ABDOMEN AND PELVIS: There is a hypermetabolic mass encasing the hepatic artery and left gastric arter y along the rightward lateral aspect of the celiac artery. This mass measures 3.2 x 2.5 cm in size w ith SUV 7.7 worrisome for recurrent malignancy. A 1.3 x 1.1 cm portacaval space lymph node is present with SUV of 2.3. There is a new hypermetabolic 2 cm liver lesion along the ventral edge of the resected liver parenchy ma with SUV of 8. PROXIMAL LOWER EXTREMITIES: No areas of abnormal metabolic activity in the soft tissues of the lower extremities. BONES: No abnormal metabolic activity in the visualized skeleton. ADDITIONAL CT FINDINGS: Post partial hepatectomy with resection of the left lobe liver and gallbladde r. Spotty coronary artery calcifications. Small hiatal hernia. Post appendectomy. OTHER: Blood pool background activity 1.9 SUV. Liver background activity 3.1 SUV. IMPRESSION: Metabolically active mass along the rightward aspect of the celiac artery encasing the h epatic artery, 3.2 x 2.5 cm in size New hypermetabolic lesion along the liver resection margin Hypermetabolic lesions in the right and left lower pole thyroid with small left supraclavicular metab olically active lymph node TECHNICAL DOCUMENTATION: JOB ID: [id number] [employer]- All Rights Reserved Reading location - IP/workstation name: [email or web address]
== END ==
LOC: RAD 17:28
PROVIDERS: ATTEND Internal Medicine Hematology & Oncology
DX: C23 Malignant neoplasm of gallbladder (principal)
CPT/HCPCS: 78815; A9552

== ENCOUNTER 2019-01-14 13:00 | Day surgery (SDC) | payer OTHER ==
[~2019-01-14 13:00] MED LIST changes: +CEFAZOLIN 1 GM/D5W RTU 1 GM/50 ML RTUPB IV ONE
[2019-01-14 13:34] LABS: HEMATOCRIT 44.4 % (36.0-47.0); MEAN CORPUSCULAR HEMOGLOBIN 30.7 pg (27.0-33.4); MEAN CORPUSCULAR HGB CONC 33.9 g/dL (32.0-36.0); MEAN CORPUSCULAR VOLUME 91 fl (80-97); PLATELET COUNT 134 10^3/uL (150-450); RED CELL DISTRIBUTION WIDTH 14.3 % (11.5-14.0); WHITE BLOOD COUNT 7.2 10^3/uL (4.0-10.5)
[2019-01-14] MEDS ORDERED: LIDOCAINE 1%/EPINEPHRINE INJ 20 ML VIAL ONE (13:53)
[2019-01-14] MEDS ORDERED: FENTANYL CITRATE INJ/PF 100 MCG/2 ML AMPUL ONE (14:52)
[2019-01-14] MEDS ORDERED: MIDAZOLAM 2 MG/2 ML INJ ONE (14:53)
[2019-01-14] MEDS ORDERED: PROPOFOL INJ 200 MG/20 ML VIAL IV ONE ×2 (14:53→15:47)
[2019-01-14] MEDS ORDERED: OXYCODONE-ACETAMINOPHEN 5-325 MG TABLET PO PRN ×2 (15:37)
[2019-01-14] MEDS ORDERED: ONDANSETRON HCL INJ/PF 4 MG/2 ML SDV IV PRN (15:37)
[2019-01-14] MEDS ORDERED: MORPHINE SULFATE 10 MG/ML INJ IV PRN (15:37)
[2019-01-14] MEDS ORDERED: FENTANYL CITRATE INJ/PF 100 MCG/2 ML AMPUL IV PRN ×3 (15:37)
[2019-01-14] MEDS ORDERED: DIPHENHYDRAMINE HCL 50 MG/ML VIAL IV PRN (15:37)
[2019-01-14] MEDS ORDERED: PROMETHAZINE HCL INJ 25 MG/1 ML VIAL IV PRN ×2 (15:37)
[2019-01-14] MEDS ORDERED: MEPERIDINE HCL/PF INJ 25 MG/1 ML DISP.SYRIN IV PRN (15:37)
--- NOTE | 2019-01-14 16:14 | Discharge Summary ---
Discharge Summary (SDC) - Discharge Final Diagnosis: Recurrent gallbladder carcinoma Date of Surgery: 01/14/19 Discharge Date: 01/14/19 Condition: Good Treatment or Instructions: May resume preoperative diet, orders, activity. Return to clinic, [place] [facility], in 1 to 2 weeks. Prescription for Toradol on chart. Referrals: SHELBY MENDOZA PA-C [Primary Care Provider] - Discharge Diet: As Tolerated Discharge Activity: Activity As Tolerated Home Care Assistance: None Needed Report the Following to Your Physician Immediately: Shortness of Breath, Increase in Pain, Fever over 101 Degrees
--- NOTE | 2019-01-14 16:20 | Operative Report ---
Operative Report DATE OF SURGERY: 01/14/19 PREOPERATIVE DIAGNOSIS: Recurrent gallbladder carcinoma POSTOPERATIVE DIAGNOSIS: Same OPERATION: 1. Focused ultrasound of the left neck. 2. Ultrasound directed insertion of left internal jugular vein central venous access Ilmknv-t-Rsew catheter. 3. Interpretation of intraoperative fluoroscopy. SURGEON: PARRIS STONE ANESTHESIA: LMAC TISSUE REMOVED OR ALTERED: None COMPLICATIONS: None ESTIMATED BLOOD LOSS: Scant INTRAOPERATIVE FINDINGS: See below PROCEDURE: The patient was seen in the preop holding her with a left neck was marked, then the patient was taken to the main operating room where LMAC anesthesia was induced. Arms were tucked to the sides, neck extended at the cervical level, head tilted to the right. Surgical plan surgical timeout were conducted. Using ultrasound real-time as a guide, the skin was anesthetized 1% plain lidocaine, crystal made the skin with 11 blade, and micro needle and wire threaded into the left internal jugular vein. A suitable site for placement of the port was chosen in the left subclavian position. Skin was anesthetized 1% plain lidocaine, 3 cm incision was made with a knife. Subcutaneous tissue divided with electrocautery, and blunt dissection. The 8 Samoan single-lumen catheter was then tunneled between the 2 incisions, trimmed to the appropriate length, and attached to the port with the plastic ring. The port was tucked into the left subclavian pocket. The micro wire was switched over to a conventional 0.030 guidewire. All under fluoroscopic guidance, a dilator introducer sheath were threaded over the guidewire, guidewire dilator removed, catheter fragment threaded into the strip away sheath strip away sheath removed leaving catheter in satisfactory position with the tip at the junction of the innominate vein in the supra. There is no kinking of the catheter. The catheter was aspirated and flushed with heparinized saline. All operative wounds closed with 3-0 Vicryl benzoin and Steri-Strips. Patient procedure well, taken to the recovery room in stable condition.
--- NOTE | 2019-01-14 16:37 | RADIOLOGY REPORT (SQ) ---
EXAM DESCRIPTION: NO CHG FLUORO COMPLETED DATE/TIME: 01/14/2019 4:10 pm REASON FOR STUDY: LT SIDED PORTACATH C23 MALIGNANT NEOPLASM OF GALLBLADDER COMPARISON: None. FLUOROSCOPY TIME: Less than one hour. 0.9 minutes LIMITATIONS: None. PROCEDURE: Fluoroscopy was provided for intraprocedural guidance. No images were stored in the PACS system. IMPRESSION: Intraprocedural fluoroscopy was provided. No images were stored in the PACS system. Please Correlate with the procedure report. COMMENT: Quality ID 145: Final reports for procedures using fluoroscopy that document radiation exp osure indices, or exposure time and number of fluorographic images (if radiation exposure indices are not available) TECHNICAL DOCUMENTATION: JOB ID: [id number] [employer]- All Rights Reserved Reading location - IP/workstation name: [email or web address]
--- NOTE | 2019-01-14 16:39 | RADIOLOGY REPORT (SQ) ---
EXAM DESCRIPTION: CHEST SINGLE VIEW COMPLETED DATE/TIME: 01/14/2019 4:10 pm REASON FOR STUDY: LT SIDED PORTACATH C23 MALIGNANT NEOPLASM OF GALLBLADDER COMPARISON: None. FLUOROSCOPY TIME: 0.9 minutes 2 images saved to PACS. TECHNIQUE: Intra-operative images acquired during surgical procedure to evaluate progress. NUMBER OF IMAGES: 2 LIMITATIONS: None. FINDINGS: Limited fluoroscopic images obtained to evaluate progress. Images demonstrate evidence of left internal jugular chest port with catheter tip overlying distal innominate vein. Please see ope rative report for detailed description. IMPRESSION: IMAGE(S) OBTAINED DURING PROCEDURE. COMMENT: Quality ID 145: Final reports for procedures using fluoroscopy that document radiation exp osure indices, or exposure time and number of fluorographic images (if radiation exposure indices are not available) Please consult full operative report of the attending physician for description of the procedure. TECHNICAL DOCUMENTATION: JOB ID: [id number] [employer]- All Rights Reserved Reading location - IP/workstation name: [email or web address]
[2019-01-14 17:45] VITALS: BP 154/83
== END 2019-01-14 17:45 | disposition home or self-care (01) ==
LOC: OROUT 13:00
PROVIDERS: ATTEND Surgery
DX: C23 Malignant neoplasm of gallbladder (principal); E78.00 Pure hypercholesterolemia, unspecified; F17.210 Nicotine dependence, cigarettes, uncomplicated; E07.9 Disorder of thyroid, unspecified; I10 Essential (primary) hypertension; Z79.899 Other long term (current) drug therapy; Z01.818 Encounter for other preprocedural examination
CPT/HCPCS: 36561; 36415; 84132; 85027; 71045; C1752; C1788; J2250; J0690; J3010; J3490; J2704; J1642; 532

== ENCOUNTER 2019-04-16 10:00 | Outpatient (CLI) | payer OTHER ==
[~2019-04-16 10:00] MED LIST changes: -ACETAMINOPHEN 325 MG TABLET PO PRN; -CEFAZOLIN 1 GM/D5W RTU 1 GM/50 ML RTUPB IV ONE; -CEFAZOLIN 1 GM/D5W RTU 1 GM/50 ML RTUPB IV PRN; +CISPLATIN IV PRN; +DEXAMETHASONE 10 MG in NS 50 ML IV PRN; +FOSAPREPITANT 150 MG in NS 150 ML IV PRN; +FUROSEMIDE INJ/PF 20 MG/2 ML SDV IV PRN; +NORMAL SALINE 500 ML @ KVO IV PRN; +NORMAL SALINE IV PRN; +PALONOSETRON 0.25 MG/5 ML VIAL IV PRN
[2019-04-16 11:01] VITALS: BP 108/67
[2019-04-16] MEDS ORDERED: CISPLATIN IV PRN (11:04)
[2019-04-16] MEDS ORDERED: NORMAL SALINE IV PRN (11:04)
== END 2019-04-16 13:23 | disposition home or self-care (01) ==
LOC: II 10:00 → 5TH 10:04 → II 13:23
PROVIDERS: ATTEND Internal Medicine Hematology & Oncology
PROC: 3E04305 Introduction of Other Antineoplastic into Central Vein, Percutaneous Approach (ICD-10-PCS; principal; 2019-04-16)
PROC: 3E043GC Introduction of Other Therapeutic Substance into Central Vein, Percutaneous Approach (ICD-10-PCS; 2019-04-16)
DX: Z51.11 Encounter for antineoplastic chemotherapy (principal); C23 Malignant neoplasm of gallbladder
CPT/HCPCS: 96413; 96367; 96375; J9060; J1940; J7050 ×2; J7030; J1100 ×2; J1642; J1453 ×2; J2469 ×2; 96361

== ENCOUNTER → 2019-05-24 | Outpatient (CLI) | payer OTHER ==
--- NOTE | 2019-05-26 15:29 | RADIOLOGY REPORT (SQ) ---
EXAM DESCRIPTION: PET CT SKULL/THIGH COMPLETED DATE/TIME: 05/25/2019 12:29 am REASON FOR STUDY: (C23)MALIGNANT NEOPLASM OF GALLBLADDER C23 MALIGNANT NEOPLASM OF GALLBLADDER COMPARISON: PET from 11/16/2018, CT of the abdomen and pelvis with oral contrast from 10/24/2018, and C T of the chest from 07/18/2017. RADIONUCLIDE AND DOSE: 11.7 mCi F18 FDG The route of agent administration: Intravenous FASTING BLOOD SUGAR: 134 mg/dl CONTRAST TYPE AND DOSE: No CT contrast given. TECHNIQUE: Blood glucose level was verified. Above dose of FDG was injected intravenously. 2-D seg mented attenuation correction images were obtained from the base of the skull to the midthighs. Nonc ontrast CT images were obtained for attenuation correction and fusion with emission images. CT image s were performed without oral or intravenous contrast and are not sensitive for parenchymal lesions. A series of overlapping emission PET images were obtained. Images reviewed and manipulated at [facility] work station by the radiologist. Images stored on PACS. LIMITATIONS: None. FINDINGS: HEAD AND NECK: There is persistent elevated FDG uptake within both lobes of the thyroid gl and ; the abnormal FDG uptake has no anatomic correlate on CT. For reference, the maximum SUV within the right lobe of the thyroid gland equals 13.5 and the maximum SUV within the left lobe of thyroid gland equals 8.4. The FDG avid and enlarged lymph node in the left supraclavicular fossa that measur ed approximately 1.3 x 0.8 cm on the prior PET and had a maximum SUV of 5.2 has decreased in size (at the moment it measures approximately 9 mm in long axis diameter) and the intensity of FDG uptake wit hin the node has also decreased ; at the moment the maximum SUV within the node equals that of the bl ood pool. CHEST: There are several bilateral pulmonary nodules that are unchanged in size and number compared t o the prior PET. The degree of FDG uptake within the dominant 12 mm nodule in the right lower lobe (i mage 103 of series 3) equals that of the blood pool (maximum SUV of 2.2); the degree of FDG uptake wi thin the 11 mm nodule in the posterior basal segment of the left lower lobe (image 103 of series 3) i s less than that of the blood pool. The other nodules measure less than 10 mm and are therefore are outside the spatial resolution of PET. ABDOMEN AND PELVIS: The extent of and the degree of FDG uptake within the liver, along the surgical r esection margin, have both increased from the prior PET and the maximum SUV in the area equals 11.2 c ompared to 8 on the prior PET. The degree of FDG uptake within the ill-defined mass that encases the proper hepatic artery is unchan ged with a maximum SUV of 7.1 compared to 7.7 on the prior PET. PROXIMAL LOWER EXTREMITIES: No areas of abnormal metabolic activity in the soft tissues of the lower extremities. BONES: No areas of abnormal FDG uptake within the imaged axial or appendicular skeleton. ADDITIONAL CT FINDINGS: Evaluation is limited due to the absence of intravenous contrast. There are irregular areas of hypodensity along the surgical resection margin of the liver that involve both rig ht and left hepatic lobes ; these areas demonstrate avid FDG uptake on the prior PET. The enlarged p ortocaval lymph node described on the prior CT is unchanged from the prior PET. OTHER: No other findings. IMPRESSION: 1. Increased heterogeneity and FDG uptake within the hepatic parenchyma along the surgic al resection margin. For reference, the maximum SUV in the area is 11.2 up from 8 on the prior PET. 2. Unchanged abnormal uptake within the ill-defined mass that encases the proper hepatic artery (the maximum SUV equals 7.1 compared to 7.7 on the prior PET). 3. Stable pulmonary nodules as detailed above. 4. Persistent elevated FDG uptake within both lobes of the thyroid glands that has no anatomic corre late on CT. Compared to the prior CT, the degree of FDG uptake is increased (for reference the maxim um SUV in the right lobe of thyroid gland equals 13.5 up from 8.4 on the prior PET). In contradistin ction, the size and the degree of FDG uptake within the lymph node in the left supraclavicular fossa have both decreased ; at the moment the maximum SUV within the node equals that of the blood pool. TECHNICAL DOCUMENTATION: JOB ID: [id number] [employer]- All Rights Reserved Reading location - IP/workstation name: [email or web address]
== END ==
LOC: RAD 16:13
PROVIDERS: ATTEND Nurse Practitioner Family
DX: C23 Malignant neoplasm of gallbladder (principal); R91.8 Other nonspecific abnormal finding of lung field
CPT/HCPCS: 78815; A9552

== ENCOUNTER → 2019-08-18 | Outpatient (CLI) | payer OTHER ==
--- NOTE | 2019-08-18 16:00 | RADIOLOGY REPORT (SQ) ---
EXAM DESCRIPTION: PET CT SKULL/THIGH COMPLETED DATE/TIME: 08/18/2019 1:29 pm REASON FOR STUDY: C23 MALIGNANT NEOPLASM OF GALLBLADDER C23 MALIGNANT NEOPLASM OF GALLBLADDER COMPARISON: 05/24/2019 at RADIONUCLIDE AND DOSE: 9.98 mCi F18 FDG The route of agent administration: Intravenous FASTING BLOOD SUGAR: 129 mg/dl CONTRAST TYPE AND DOSE: No CT contrast given. TECHNIQUE: Blood glucose level was verified. Above dose of FDG was injected intravenously. 2-D seg mented attenuation correction images were obtained from the base of the skull to the midthighs. Nonc ontrast CT images were obtained for attenuation correction and fusion with emission images. CT image s were performed without oral or intravenous contrast and are not sensitive for parenchymal lesions. A series of overlapping emission PET images were obtained. Images reviewed and manipulated at [facility] [employer] work station by the radiologist. Images stored on PACS. LIMITATIONS: None. FINDINGS: HEAD AND NECK: Again seen is heterogeneous uptake within the thyroid gland bilaterally, ri ght greater than left, without CT correlate. For reference right lobe demonstrates increased uptake (max SUV 7.7, previously 13.5). Left lobe demonstrates mild increased activity (max SUV 3.9, previou sly 8.4). Previously described left supraclavicular lymph node is stable without increased FDG uptak e. No other abnormal uptake within the head neck. CHEST: Minimal increased size of the right lower lobe pulmonary nodule measuring 13 mm, previously 12 mm with mild FDG uptake (max SUV 2.2, previously 2.2). Dominant left lower lobe pulmonary nodule de monstrates minimal interval increase in size measuring 13 mm, previously 11 mm (max SUV 2.0 which is below blood pool activity). There are multiple additional subcentimeter pulmonary nodules which are stable in size and distribution from prior. And which are below the size threshold for PET. ABDOMEN AND PELVIS: Background blood pool max SUV 2.2. Background hepatic activity max SUV 4.8. Aga in seen is heterogeneous irregular uptake centered around the surgical resection cavity and gallbladd er fossa which has increased in distribution compared to prior PET (max SUV 12.5, previously 11.2). Grossly stable appearance of the ill-defined soft tissue density encasing the proper hepatic artery w ith increased FDG uptake (max SUV 6.5, previously 7.1). No new areas of abnormal pathologic FDG upta ke within the abdomen or pelvis. Physiologic activity within the gastrointestinal and genitourinary system. PROXIMAL LOWER EXTREMITIES: No areas of abnormal metabolic activity in the soft tissues of the lower extremities. BONES: Background osseous activity max SUV 1.6. There are scattered sclerotic foci, some which are i ncreased in conspicuity from prior PET. For reference there is a in right ilial lesion measuring 14 mm (series 3, image 181) with mild FDG uptake (max SUV 3.2). Increased conspicuity of a left ileal l esion measuring 7 mm (series 3, image 197), previously measuring [address] FINDINGS: Stable to minimally increased size of the pulmonary nodules as detailed above . Left-sided chest port with catheter tip at distal innominate. Coronary atherosclerosis. Postsurg ical changes with irregular hypoattenuation about the resection cavity and gallbladder fossa. Grossl y stable appearance of the ill-defined soft tissue density encasing the proper hepatic artery. No ev idence of acute intra-abdominal/pelvic process. Scattered sclerotic osseous lesions, some of which h ave increased in size from recent prior and are new from more remote priors. IMPRESSION: 1. Increased size and FDG uptake within the heterogeneous hypodense hepatic lesion clive g the surgical resection margin compatible with residual disease (max SUV 12.5, previously 11.2). 2. Grossly stable appearance of the abnormal ill-defined soft tissue mass encasing the proper hepati c artery compatible with metastatic disease (max SUV 6.5). 3. Minimally increased size of the largest pulmonary nodules without avid FDG uptake. For reference right lower lobe nodule measures 13 mm, previously 12 mm (max SUV 2.2). Stable additional subcentim eter pulmonary nodules. 4. Persistent increased uptake within the thyroid gland, right greater than left (max SUV 7.5) witho ut clear CT correlate. 5. Scattered sclerotic foci some of which demonstrate increased conspicuity and mild uptake with com patible with osseous metastatic disease. TECHNICAL DOCUMENTATION: JOB ID: [id number] [employer]- All Rights Reserved Reading location - IP/workstation name: [email or web address]
== END ==
LOC: RAD 08:20
PROVIDERS: ATTEND Internal Medicine Hematology & Oncology
DX: C23 Malignant neoplasm of gallbladder (principal); C79.51 Secondary malignant neoplasm of bone; R91.8 Other nonspecific abnormal finding of lung field
CPT/HCPCS: 78815; A9552

== ENCOUNTER → 2019-09-10 | Outpatient (CLI) | payer OTHER ==
--- NOTE | 2019-09-10 15:15 | RADIOLOGY REPORT (SQ) ---
EXAM DESCRIPTION: CT ABDOMEN IV CONTRAST ONLY COMPLETED DATE/TIME: 09/10/2019 12:03 pm REASON FOR STUDY: C23 MALIGNANT NEOPLASM OF GALLBLADDER, E80.7 DISORDER OF BILIRUBIN METABOLI C23 M ALIGNANT NEOPLASM OF GALLBLADDER E80.7 DISORDER OF BILIRUBIN METABOLISM, UNSPECIFIED COMPARISON: PET from 08/18/2019. TECHNIQUE: CT scan of the abdomen performed with intravenous and without oral contrast using helical scanning technique with dynamic intravenous contrast injection. Images reviewed with lung, soft tiss ue, and bone windows. Reconstructed coronal and sagittal MPR images reviewed. Delayed images for eval uation of the urinary system also acquired and evaluated. All images stored on PACS. All CT scanners at this facility use dose modulation, iterative reconstruc tion, and/or weight based dosing when appropriate to reduce radiation dose to as low as reasonably ac hievable (ALARA). [facility]: Dose Right [facility]: CareDose [facility]: Dose Right [facility]: Teradose 4D [facility]: Cool de Sac CONTRAST TYPE AND DOSE: Contrast/concentration: Isovue mg/ml; Total Contrast Delivered: 80.4 ml; To laurent Saline Delivered: 69.0 ml RENAL FUNCTION: Creatinine 1.14 milligrams/deciliter RADIATION DOSE: CT Rad equipment meets quality standard of care and radiation dose reduction techniq ues were employed. CTDIvol: 5.5 - 5.6 mGy. DLP: 408 mGy-cm. LIMITATIONS: None. FINDINGS: LOWER CHEST: There are several bilateral pulmonary nodules that are stable in size and num olya from the PET; these include the 13 x 9 mm subpleural nodule in the right lower lobe (im age 17 of series 4) and the 14 x 9 mm subpleural nodule in the left lower lobe. The heart is normal in size. There is no pericardial or pleural effusion. LIVER: The morphology of the liver is non cirrhotic. The atrophic appearance of the left hepatic lob e with left hepatic lobe is unchanged. The ill-defined hypodensity anterior and superior to the surg ical clips within segment 4 of the liver that demonstrated increased uptake on the correlative PET is unchanged. The confluent nodular hypodensities in the right hepatic lobe are also unchanged and als o demonstrated increased uptake on the prior PET. The intrahepatic bile ducts in segment 6 an 8 of t he liver are dilated. SPLEEN: No splenomegaly or splenic mass. PANCREAS: There is no acute abnormality of the pancreas. GALLBLADDER: The gallbladder is surgically absent. ADRENAL GLANDS: The diffuse nodular enlargement of the left adrenal gland is unchanged. RIGHT KIDNEY AND URETER: No solid mass, hydronephrosis or nephrolithiasis. LEFT KIDNEY AND URETER: No solid mass, hydronephrosis or nephrolithiasis. AORTA AND VESSELS: The abdominal aorta is normal in caliber. RETROPERITONEUM: Stable 6 mm left periaortic lymph node (image 43 of series 2). There is no retroper itoneal mass. BOWEL AND PERITONEAL CAVITY: The confluent adenopathy that extends from the hemal hepatis to encases and narrows the extrahepatic portal vein, celiac, and branches of the celiac is unchanged compared to the prior PET. The adenopathy also partially encases the proximal SMA. The bowel is normal in taiwo olya. APPENDIX: Normal. ABDOMINAL WALL: No masses or hernias. BONES: No acute findings. OTHER: No other finding. IMPRESSION: The findings described above consistent with residual/recurrent disease along the surgic al resection margin of the gallbladder are unchanged compared to the PET from 08/18/2019. The visual ized pulmonary nodules are also unchanged in size and number compared to the PET from 08/18/2019 as i s the confluent adenopathy that extends from the hemal hepatis to encase the adjacent vasculature. TECHNICAL DOCUMENTATION: JOB ID: [id number] Quality ID # [id number]: Final reports with documentation of one or more dose reduction techniques (e.g., Au tomated exposure control, adjustment of the mA and/or kV according to patient size, use of iterative reconstruction technique) 2010 [employer]- All Rights Reserved Reading location - IP/workstation name: [email or web address]
== END ==
LOC: RAD 11:07
PROVIDERS: ATTEND Internal Medicine Hematology & Oncology
DX: C23 Malignant neoplasm of gallbladder (principal); E80.7 Disorder of bilirubin metabolism, unspecified
CPT/HCPCS: 74160